=== PATIENT | female | born 1970 | race Caucasian/White ===

== ENCOUNTER → 2017-06-07 | Outpatient (CLI) | payer BC ==
[~2017-06-07] MED LIST: AMOXICILLIN500 M1 PO; IBUPROFEN PO; ZITHROMAX PO
--- NOTE | ~2017-06-07 | US17 ---
[facility] A Service of [facility] & [facility] RADIOLOGY TEXT RESULTS PATIENT: COMPA WANG LOCATION: [facility] : 74 UNIT #: [id number] AGE: [address]: Michael Fair MD SEX: F ORDER DR: [id number] [facility] [address] [place], [place] [address] [id number] O MR#: [id number] Acc #: [id number] NAME: COMPA WANG : 1970 SEX: F STUDY DATE/TIME: 06/07/2017 9:02 UNIT: [facility] ROOM: STUDY DESCRIPTION: US Breast Bilateral Attending Physician: Michael Fair M.D. Referring Physician: Michael Fair M.D. Ordering Physician: Michael Fair M.D. Primary Care Physician: Michael Fair M.D. MEDICAL IMAGING REPORT This report is preliminary unless electronic signature is present EXAM Bilateral breast ultrasound, 06/07/2017. FINDINGS Please see diagnostic mammogram report from this same date. BIRADS: 4 Suspicious abnormality; biopsy should be considered. STAT * RESULT Dictated by... Andres Velasquez M.D. THIS IS AN ELECTRONICALLY VERIFIED REPORT Andres Velasquez M.D. at 06/07/2017 5:17 PM ISAURO/denia TD: 06/07/2017 13:49 JOB #: [id number] MEDICAL IMAGING REPORT Page 1 of 1 COPY
--- NOTE | ~2017-06-07 | MY26 ---
[facility] A Service of [facility] & [facility] RADIOLOGY TEXT RESULTS PATIENT: COMPA WANG LOCATION: [facility] : 74 UNIT #: [id number] AGE: [address]: Michael Fair MD SEX: F ORDER DR: [id number] [facility] [address] [place], [place] [address] [id number] O MR#: [id number] Acc #: [id number] NAME: COMPA WANG. : 1970 SEX: F STUDY DATE/TIME: 06/07/2017 8:13 UNIT: [facility] ROOM: STUDY DESCRIPTION: [facility] DIAGNOSTIC W/ CAD BILAT Attending Physician: Micheal Fair M.D. Referring Physician: Michael Fair M.D. Ordering Physician: Michael Fair M.D. Primary Care Physician: Michael Fair M.D. MEDICAL IMAGING REPORT This report is preliminary unless electronic signature is present EXAM Bilateral digital diagnostic mammogram with targeted right breast ultrasound 06/07/2017 INDICATION 47-year-old female with history of a right breast mass for the past 2.5 months. Diffuse breast pain bilaterally for 2 years. No personal history of breast cancer. Family history positive in an aunt and grandmother. No surgeries. TECHNIQUE CC, MLO and true lateral views of the breasts were obtained and reviewed with an FDA-approved CAD device. Additional spot and spot magnification views of the right breast were obtained. COMPARISONS 07/07/2016, 07/14/2012 FINDINGS MAMMOGRAPHIC FINDINGS: The breast parenchyma is heterogeneously dense. This degrades sensitivity of screening mammography. The pattern is unchanged. A radiopaque marker overlies the area of palpable concern in the right breast. This localizes to the lower inner quadrant. Deep to the marker best demonstrated on the spot CC view, is a stellate density measuring up to about 1 cm. It is difficult to identify on the MLO projection due to superimposed dense breast tissue. There are no associated microcalcifications with the area of palpable concern. There are calcifications in the upper outer hemisphere right breast. These have primarily benign dystrophic characteristics although there are some smaller microcalcifications adjacent to the more dystrophic calcifications that were evaluated with spot magnification views and demonstrate probably benign features for which 6-month follow up mammography is recommended to document stability. There is no additional nodule, mass, or suspicious STS. [facility] A Service of [facility] RADIOLOGY TEXT RESULTS PATIENT: COMPA WANG LOCATION: [facility] : 74 UNIT #: [id number] AGE: [address]: Michael Fair MD SEX: F ORDER DR: cluster of microcalcifications on either side. Ultrasound of the area of palpable concern on the right was performed. Ultrasound of both breasts was also performed in the area of patient pain symptoms bilaterally. ULTRASOUND FINDINGS RIGHT BREAST: The patient was initially scanned independently by the technologist and then rescanned in my presence. Limited physical exam (with patient consent) was performed by me here in the department and confirms the presence of a firm palpable nodule in the periareolar 6 o'clock position of the right breast felt to correspond to the mammographic area of concern. Ultrasound demonstrates a suspicious irregularly marginated and angulated hypoechoic shadowing mass at the palpable site measuring 8 x 9 x 9 mm. Imaging features are highly concerning for malignancy and ultrasound-guided core biopsy is recommended for further assessment. Imaging findings are felt to be concordant between modalities. Imaging of the area of pain symptoms in the right breast was also performed and was otherwise negative. This included the remainder of the entire right breast. LEFT BREAST: The patient complained of diffuse pain throughout the left breast and whole breast ultrasound was performed and was negative demonstrating no cystic or solid mass or persistent shadowing abnormality. The abnormal findings in the right breast were discussed with the patient. She is not on any blood thinners that would preclude ultrasound-guided core biopsy. The patient has voiced understanding and agreement with the plan to proceed with ultrasound-guided core biopsy on the right. The breast healthcare liaison has been personally notified of the recommendation for biopsy and they are in the process of notifying the ordering physician office of Dr. Fair of the recommendation for biopsy as well. The patient was counseled that if she had not received additional instructions or scheduling from Dr. Fair's by tomorrow afternoon, to please contact their office independently. She has voiced understanding and agreement. I called the breast healthcare liaison at approximately 0920 hours 06/07/2007. IMPRESSION 1. Abnormal examination. The area of palpable concern in the 6 o'clock periareolar right breast corresponds to a 9 mm suspicious solid mass in the right breast. Ultrasound-guided core biopsy is recommended for further assessment. Findings are suspicious for malignancy. The patient and the breast healthcare liaison are both aware of the recommendation for biopsy as described above. Dr. Fair's office is being contacted for scheduling of the procedure. 2. There are some probably benign calcifications in the upper outer right breast. 6-month follow up imaging with mammography recommended for reassessment. These are probably benign on magnification views. [facility] A Service of [facility] RADIOLOGY TEXT RESULTS PATIENT: COMPA WANG LOCATION: [facility] : 74 UNIT #: [id number] AGE: [address]: Michael Fair MD SEX: F ORDER DR: 3. Ultrasound of the breasts bilaterally in the areas of additional chronic pain symptoms was performed and is negative. Patient's over the age of 40 are entered into a reminder system with target due date for the next mammogram. BIRADS: 4 Suspicious abnormality; biopsy should be considered. STAT * RESULT Dictated by... Andres Velasquez M.D. THIS IS AN ELECTRONICALLY VERIFIED REPORT Andres Velasquez M.D. at 06/07/2017 5:17 PM Hoda TD: 06/07/2017 13:49 JOB #: [id number] MEDICAL IMAGING REPORT Page 1 of 1 COPY
== END | disposition home or self-care (01) ==
LOC: CMAM 07:32
DX: N63 Unspecified lump in breast (principal); R92.8 Other abnormal and inconclusive findings on diagnostic imaging of breast
CPT/HCPCS: 76641; G0204

== ENCOUNTER → 2017-06-28 | Outpatient (CLI) | payer BC ==
--- NOTE | ~2017-06-28 | US5 ---
[facility] A Service of [facility] RADIOLOGY TEXT RESULTS PATIENT: COMPA WANG LOCATION: [facility] : 74 UNIT #: [id number] AGE: [address]: Abdiaziz Hassan MD SEX: F ORDER DR: [id number] [address] [address] [id number] O MR#: [id number] Acc #: [id number] NAME: COMPA WANG : 1970 SEX: F STUDY DATE/TIME: 06/28/2017 9:46 UNIT: SG ROOM: STUDY DESCRIPTION: US Abdominal Complete Attending Physician: Abdiaziz Hassan M.D. Referring Physician: Abdiaziz Hassan M.D. Ordering Physician: Abdiaziz Hassan M.D. Primary Care Physician: Michael Fair M.D. MEDICAL IMAGING REPORT This report is preliminary unless electronic signature is present. EXAM Abdominal ultrasound, complete, 06/28/2017. HISTORY Thrombocytopenia and breast carcinoma diagnosed 1 month ago. FINDINGS The liver is homogeneous in echotexture and demonstrates no cystic or solid mass lesions. The intra and extrahepatic bile ducts are not dilated. The gallbladder is normal with no evidence of cholelithiasis, wall thickening, or pericholecystic fluid. The common duct measured 3 mm. The pancreas and spleen are normal. The spleen measures approximately 12 cm in diameter. The visualized portions of the abdominal aorta and inferior vena cava within normal limits. The kidneys are normal bilaterally. IMPRESSION Negative abdominal ultrasound. Dictated by... Bob Thornton M.D. THIS IS AN ELECTRONICALLY VERIFIED REPORT Bob Thornton M.D. at 06/29/2017 7:25 AM NESHA/denia TD: 06/29/2017 03:17 JOB #: [id number] MEDICAL IMAGING REPORT [facility] A Service of [facility] RADIOLOGY TEXT RESULTS PATIENT: COMPA WANG LOCATION: [facility] #: [id number] : 74 UNIT #: [id number] AGE: [address]: Abdiaziz Hassan MD SEX: F ORDER DR: Page 1 of 1
== END | disposition home or self-care (01) ==
LOC: SGUS 08:35
DX: C50.011 Malignant neoplasm of nipple and areola, right female breast (principal); D69.6 Thrombocytopenia, unspecified
CPT/HCPCS: 76700